=== PATIENT | male | born 1965 | race Caucasian/White ===

== ENCOUNTER 2020-06-25 08:30 | Day surgery (SDC) | payer OTHER, SELFPAY ==
[~2020-06-25] VITALS: Ht 190.5 cm; Wt 102.1 kg
[2020-06-25] MEDS ORDERED: fentaNYL citrate 0.05 MG/ML VIAL ONE (09:23)
[2020-06-25] MEDS ORDERED: MIDAZOLAM 5 MG/5 ML VIAL ONE (09:23)
[2020-06-25] MEDS ORDERED: diphenhydrAMINE 50 MG/ML VIAL ONE (09:23)
[2020-06-25] MEDS ORDERED: LIDOCAINE 2% 100 MG/5 ML UJET TP ONE (09:24)
[2020-06-25] MEDS: fentaNYL citrate 0.05 MG/ML VIAL IVP ONE (09:45)
[2020-06-25] MEDS: MIDAZOLAM 2 MG/2 ML VIAL IVP ONE (09:46)
[2020-06-25] MEDS: LIDOCAINE 2% 100 MG/5 ML UJET TP ONE (09:46)
== END 2020-06-25 11:00 | disposition home or self-care (01) ==
LOC: MDS 08:30 → MMU 08:30 → MDS 11:00
PROVIDERS: ATTEND Internal Medicine Gastroenterology
DX: K62.5 Hemorrhage of anus and rectum (principal); K63.5 Polyp of colon; Z83.71 Family history of colonic polyps; Z80.0 Family history of malignant neoplasm of digestive organs; Z79.899 Other long term (current) drug therapy
CPT/HCPCS: 45385; 87426; J2250; J3010; J1200